=== PATIENT | male | born 1960 | race Caucasian/White ===

== ENCOUNTER 2017-07-03 07:58 | Day surgery (SDC) | payer OTHER ==
[~2017-07-03] VITALS: Ht 162.6 cm; Wt 56.7 kg
[2017-07-03] MEDS ORDERED: MEPERIDINE HCL/PF 100 MG/ML AMP ONE (08:03)
[2017-07-03] MEDS ORDERED: SIMETHICONE 40 MG/0.6 ML ML ONE (08:03)
[2017-07-03] MEDS ORDERED: MIDAZOLAM HCL 5 MG/5 ML VIAL ONE (08:04)
[2017-07-03] MEDS: MIDAZOLAM HCL 5 MG/5 ML VIAL ONE ×3 (08:20→08:24)
[2017-07-03 10:23] VITALS: BP_SYST 110
== END 2017-07-03 10:10 | disposition home or self-care (01) ==
LOC: SDS 07:58 → SMU 08:07 → EDSEX 10:00 → SDS 10:10
PROVIDERS: ATTEND Internal Medicine Gastroenterology
PROC: 0DB78ZX Excision of Stomach, Pylorus, Via Natural or Artificial Opening Endoscopic, Diagnostic (ICD-10-PCS; principal; 2017-07-03 10:00)
PROC: 0DBN8ZX Excision of Sigmoid Colon, Via Natural or Artificial Opening Endoscopic, Diagnostic (ICD-10-PCS; 2017-07-03 10:00)
DX: Z12.11 Encounter for screening for malignant neoplasm of colon (principal); D12.5 Benign neoplasm of sigmoid colon; K29.70 Gastritis, unspecified, without bleeding; K57.30 Diverticulosis of large intestine without perforation or abscess without bleeding; K64.8 Other hemorrhoids
CPT/HCPCS: 43239; 45385; 36415; 87081; 88305; 88312; 88313; J2175; J2250; J7030